=== PATIENT | female | born 1990 | race Caucasian/White ===

== ENCOUNTER 2019-04-15 16:19 | Emergency (ER) | payer OTHER ==
[~2019-04-15] VITALS: Ht 157.5 cm; Wt 61.2 kg
[2019-04-15 16:21] VITALS: BP 119/66
--- NOTE | 2019-04-15 16:21 | NUR ---
PT ZEE ALS TO ER BED 11
--- NOTE | 2019-04-15 16:25 | NUR ---
28 Y FEMALE PT BIB EMS C/O PALPITATIONS X1.5 HOUR ONSET, 125 HR ON TRIAGE. DENIES PAIN, PER EMS NO ECTOPY OR SVT. NEURO INTACT: EQUAL ARM SYMMETRY, PUPILS MERT, FACIAL SYMMETRY, MEMORY INTACT, FULL AND CLEAR SPEECH. [id number]. PT [place]GOL[place] SPEAKING ONLY. REPORT RECEIEVED FROM EMS. DR CURTIS CONGOLESE SPEAKING, WITNESSED ASSESSMENT. BED IS DOWN, LOCKED, BED RAIL X 1. PMH---ANXIETY NKA
--- NOTE | 2019-04-15 16:26 | NUR ---
SKIN IS DRY AND WARM TO TOUCH. DENIES CP, SOB, OR NUMBNESS.
--- NOTE | 2019-04-15 17:00 | NUR ---
PT AMB TO RESTROOM WITH ASSISTANCE FROM FATHER
--- NOTE | 2019-04-15 17:08 | NUR ---
DR MESSINA RE-EVALUATING PT
[2019-04-15] MEDS ORDERED: NACL 0.9% 1,000 ML IV ONE (17:15)
--- NOTE | 2019-04-15 17:15 | NUR ---
ACCU CHECK 102
[2019-04-15 17:57] VITALS: BP 118/65
--- NOTE | 2019-04-15 17:57 | NUR ---
DR MESSINA SPOKE WITH PT BEFORE DISCHARGE REGARDING PT HOME CARE AND TODAYS VISIT. Patient discharged with v/s stable. Written and verbal after care instructions given. Patient Ambulatory with steady gait. All questions addressed prior to discharge. Advised to follow up with [facility]
--- NOTE | 2019-04-15 18:15 | NUR ---
CORRECT DISCHARGE INSTRUCTIONS WERE SENT HOME WITH PATIENTS WRONG NAME ATTACHED. PT HAS NO LISTED NUMBER OR ADDRESS. UNABLE TO CONTACT PATIENT REGARDING DISCHARGE PAPERWORK. PLASTERER HELPER AWARE.
--- NOTE | 2019-04-15 18:34 | NUR ---
DR MESSINA CALLED PT, PT STATES SHE WILL RETURN FOR CORRECT DISCHARGE INSTRUCTIONS.
--- NOTE | 2019-04-15 19:05 | NUR ---
PER SARAH LIN, PT'S FATHER VONNIE COFFMAN RETURNED TO ER TO SIGN AND RECEIVED PT'S DISCHARGE PAPERWORK FOR PATIENT
== END 2019-04-15 19:05 | disposition home or self-care (01) ==
LOC: MED 16:19
DX: T67.9XXA Effect of heat and light, unspecified, initial encounter (principal); R55 Syncope and collapse; Z98.890 Other specified postprocedural states; X30.XXXA Exposure to excessive natural heat, initial encounter; Y93.G3 Activity, cooking and baking; Y92.008 Other place in unspecified non-institutional (private) residence as the place of occurrence of the external cause; Y99.8 Other external cause status
CPT/HCPCS: 81002; 81025; 82948; 93005; 96360; 99283; J7030

== ENCOUNTER 2023-12-01 19:03 | Emergency (ER) | payer OTHER ==
[~2023-12-01] VITALS: Ht 147.3 cm; Wt 45.4 kg
[2023-12-01 20:18] VITALS: BP 113/53; PULSE 84; RESP 18; TEMP 97.9; O2SAT 100
[2023-12-01 21:13] LABS: BASOPHILS # (AUTO) 0.1 K/uL (0.00-0.22); BASOPHILS % (AUTO) 0.4 % (0.0-2.0); EOSINOPHILS # (AUTO) 0.1 K/uL (0-0.4); HEMATOCRIT 41.1 % (36-48); HEMOGLOBIN 13.6 g/dL (12.0-16.0); LYMPHOCYTES # (AUTO) 2.2 K/uL (2.5-16.5); LYMPHOCYTES % (AUTO) 15.7 % (20.5-51.1); MEAN CORPUSCULAR HEMOGLOBIN 25 pg (27-31); MEAN CORPUSCULAR HGB CONC 33 g/dL (33-37); MEAN CORPUSCULAR VOLUME 76.7 fL (80-94); MONOCYTES # (AUTO) 0.8 K/uL (0.8-1.0); MONOCYTES % (AUTO) 5.6 % (1.7-9.3); NEUTROPHILS # (AUTO) 10.6 K/uL (1.8-7.7); NEUTROPHILS % (AUTO) 77.3 % (42.2-75.2); PLATELET COUNT (AUTO) 322 K/uL (140-450); RED BLOOD CELL COUNT(AUTO) 5.36 MIL/uL (4.20-5.40); RED CELL DISTRIBUTION WIDTH 15.1 % (11.6-13.7); WHITE BLOOD COUNT (AUTO) 13.8 K/uL (4.8-10.8)
[2023-12-01 21:15] LABS: BILIRUBIN,URINE 1+ (NEGATIVE); BLOOD, URINE 3+ (NEGATIVE); COLOR,URINE YELLOW (YELLOW); LEUKOCYTE ESTERASE ,URINE 1+ (NEGATIVE); NITRITE, URINE NEGATIVE (NEGATIVE); PROTEIN,URINE 1+ (NEGATIVE); UGLUCOSE NEGATIVE (NEGATIVE); UROBILINOGEN,URINE 0.2 EU/dL (0.2 - 1)
[2023-12-01 21:16] LABS: APPEARANCE,URINE SLIGHTLY CLOUDY (CLEAR)
[2023-12-01 21:20] LABS: ICTOTEST NEGATIVE (NEGATIVE)
[2023-12-01 21:27] LABS: BACTERIA,URINE 10-30 (MOD) /HPF (None Seen); RBC,URINE 11-20 (MOD) /HPF (0-5); SQUAMOUS EPITHELIAL CELL,UR 4-10 (MOD) /LPF (0-3 (FEW))
[2023-12-01 21:35] LABS: ALBUMIN 4.2 g/dL (3.4-5.0); CALCIUM 9.3 mg/dL (8.5-10.1); CARBON DIOXIDE 28.7 mmol/L (21-32); CREATININE 0.8 mg/dL (0.6-1.3); POTASSIUM 3.7 mmol/L (3.5-5.1); TOTAL BILIRUBIN 0.3 mg/dL (0.0-1.0); TOTAL PROTEIN, SERUM 9.5 g/dL (6.4-8.2)
[2023-12-01] MEDS ORDERED: ONDANSETRON 4 MG ODT ONE (23:03)
[2023-12-01] MEDS ORDERED: CEPH-588 PO (23:07)
[2023-12-01 23:16] VITALS: BP 112/61; PULSE 80; RESP 16; TEMP 97.9; O2SAT 100
[2023-12-01] MEDS: cephALEXin 500 MG CAP PO ONE (23:17)
== END 2023-12-01 23:16 | disposition home or self-care (01) ==
LOC: MED 19:03
DX: N39.0 Urinary tract infection, site not specified (principal); Z79.899 Other long term (current) drug therapy
CPT/HCPCS: 36415; 80053; 81001; 81025; 83690; 85025; 87086; 87186; 99283; Q0162